=== PATIENT | male | born 1960 | race Caucasian/White ===

== ENCOUNTER 2018-02-08 20:42 | Emergency (ER) | payer SELFPAY ==
[~2018-02-08] VITALS: Ht 172.7 cm; Wt 90.7 kg
[2018-02-08 20:52] VITALS: BP 153/83
== END 2018-02-08 22:29 | disposition admitted as inpatient to this hospital (09) ==
LOC: ERH 20:42
DX: Z76.0 Encounter for issue of repeat prescription (principal)